=== PATIENT | female | born 1950 | race Caucasian/White ===

== ENCOUNTER → 2021-03-23 | Outpatient (CLI) | payer MEDICARE ==
[~2021-03-23] MED LIST: LIDOCAINE 1%, 20ML ONE; LIDOCAINE 1%-EPI 1:100K, 20ML ONE; SODIUM BICARBONATE 4.2%, 5ML ONE
== END | disposition home or self-care (01) ==
LOC: CFH 08:08
PROVIDERS: ATTEND Physician Assistant
DX: R92.1 Mammographic calcification found on diagnostic imaging of breast (principal); D24.1 Benign neoplasm of right breast; N60.41 Mammary duct ectasia of right breast
CPT/HCPCS: 19081; 88305; 77065